=== PATIENT | female | born 1935 | race Caucasian/White ===

== ENCOUNTER 2018-05-16 13:06 | Outpatient (CLI) | payer MEDICARE ==
[~2018-05-16] VITALS: Ht 167.6 cm; Wt 79.4 kg
[2018-05-16] MEDS ORDERED: CRESTOR20 MG ORAL (15:44)
[2018-05-16] MEDS ORDERED: RANITIDINE HCL150 MG ORAL (15:44)
[2018-05-16] MEDS ORDERED: BP med (15:44)
[2018-05-16 15:45] VITALS: BP 157/68
--- NOTE | 2018-05-16 20:00 | Consultation ---
DATE OF CONSULTATION: 05/16/2018 CONSULTING PHYSICIAN: Elie Bender M.D. CHIEF COMPLAINT: Chronic GERD. HISTORY OF PRESENT ILLNESS: She is a very pleasant 83-year-old female. Apparently, she had an endoscopy and colonoscopy three years ago by . She was polyps. She is here mainly because she is having severe heartburn, not responding to Zantac. PAST MEDICAL HISTORY: 1. Hypertension. 2. History of colonic polyps. PAST SURGICAL HISTORY: Right knee surgery. MEDICATIONS: She is on Crestor, Lotrel, and Zantac. FAMILY HISTORY: Sister with breast cancer. SOCIAL HISTORY: The patient denies any tobacco, alcohol, or illicit drug use. ALLERGIES: No known drug allergies. REVIEW OF SYSTEMS: A 10-point review of systems was performed and pertinent positives in HPI. PHYSICAL EXAMINATION: VITAL SIGNS: Temperature is 98.2, blood pressure is 137/63, and pulse is 70. HEENT: Normocephalic and atraumatic. Sclerae are anicteric. NECK: Supple. No obvious evidence of lymphadenopathy. CARDIOVASCULAR: Regular rate and rhythm. Plus S1 and S2. No obvious murmur. LUNGS: Clear to auscultation bilaterally. ABDOMEN: Positive bowel sounds. Soft and nontender. No rebound. No guarding. No peritoneal sign. EXTREMITIES: No cyanosis. No clubbing. No edema. ASSESSMENT AND PLAN: This is an 83-year-old female with GERD without any alarming signs or symptoms. No weight loss. No bleeding. No family history of GI malignancies. Plan to treat with omeprazole as she was taking half an hour before breakfast, lunch, or dinner daily and she was given information about reflux measures. Elevate the head of the bed at bedtime. Empty stomach 3 hours before bedtime. The patient was told to come back in two months in the office. If she is still symptomatic, we will consider doing endoscopy at that time. Elie Bender M.D. DR: CRISTIN JOB#: [id number] CC:
== END 2018-05-16 13:36 | disposition home or self-care (01) ==
LOC: PAN 13:06
DX: K21.9 Gastro-esophageal reflux disease without esophagitis (principal); I10 Essential (primary) hypertension; Z86.010 Personal history of colon polyps; Z80.3 Family history of malignant neoplasm of breast
CPT/HCPCS: 99202

== ENCOUNTER 2018-08-20 13:18 | Outpatient (CLI) | payer MEDICARE ==
[~2018-08-20 13:18] MED LIST: BP med; CRESTOR20 MG ORAL; RANITIDINE HCL150 MG ORAL
[2018-08-20 13:30] VITALS: BP 150/66
--- NOTE | 2018-08-20 13:56 | General Progress Note ---
Assessment/Plan Problem List: (1) GERD (gastroesophageal reflux disease) ICD Codes: K21.9 - Gastro-esophageal reflux disease without esophagitis SNOMED: 146639910 Assessment/Plan: refill ppi patient refused EGD RTC 2 months Subjective ROS Limited/Unobtainable: Yes Allergies: Coded Allergies: No Known Allergies (Unverified , 06/20/14) Objective General Appearance: alert EENT: normal ENT inspection Neck: supple Cardiovascular: normal rate Respiratory/Chest: decreased breath sounds Abdomen: normal bowel sounds, non tender, soft Extremities: non-tender Elie Bender MD Aug 20, 2018 13:56
== END 2018-08-20 15:18 | disposition home or self-care (01) ==
LOC: PAN 13:18
DX: K21.9 Gastro-esophageal reflux disease without esophagitis (principal)
CPT/HCPCS: 99212

== ENCOUNTER 2019-01-29 10:01 | Outpatient (CLI) | payer MEDICARE ==
[~2019-01-29] VITALS: Ht 167.6 cm; Wt 77.6 kg
--- NOTE | 2019-01-29 11:08 | General Progress Note ---
Assessment/Plan Assessment/Plan: Progress Note date and time: 08/20/18 1356 Assessment/Plan Problem List: (1) GERD (gastroesophageal reflux disease) ICD Codes: K21.9 - Gastro-esophageal reflux disease without esophagitis SNOMED: 033419483 Assessment/Plan: refill ppi patient refused EGD add baclofes no alarm S&S RTC 2 months Subjective ROS Limited/Unobtainable: Yes Allergies: Coded Allergies: No Known Allergies (Unverified , 06/20/14) Objective General Appearance: alert EENT: normal ENT inspection Neck: supple Cardiovascular: normal rate Respiratory/Chest: lungs clear Abdomen: normal bowel sounds, non tender, soft Extremities: non-tender Elie Bender MD Jan 29, 2019 11:08
[2019-01-29 12:28] VITALS: BP 117/68
== END 2019-01-29 12:01 | disposition home or self-care (01) ==
LOC: PAN 10:01
DX: K21.9 Gastro-esophageal reflux disease without esophagitis (principal)
CPT/HCPCS: 99212

== ENCOUNTER 2019-09-11 13:11 | Outpatient (CLI) | payer MEDICARE ==
--- NOTE | 2019-09-11 18:30 | Progress Note ---
DATE: 09/11/2019 CHIEF COMPLAINT: Rectal bleeding. SUBJECTIVE: This is a very pleasant 84-year-old female who has history of chronic acid reflux disease, getting treatment at this time. The main complaint is not acid reflux, it was actually rectal bleeding. It happened a few days ago when she was in the bathroom. She had a hard stool and she had a rectal bleeding after that, has not had any bleeding since then. Denies any rectal pain. Denies nausea and vomiting. PHYSICAL EXAMINATION: GENERAL: A well-developed female, in no acute distress. Mildly anxious. HEENT: Normocephalic and atraumatic. Sclerae anicteric. NECK: Supple. No evidence of obvious lymphadenopathy. CARDIOVASCULAR: Regular rate and rhythm. Plus S1 and S2. LUNGS: Clear to auscultation bilaterally. ABDOMEN: Positive bowel sounds. Soft, nontender. No rebound. No guarding. No peritoneal sign. EXTREMITIES: No cyanosis, no clubbing, no edema. ASSESSMENT AND PLAN: This is an 84-year-old female with rectal bleeding, highly suspicious for hemorrhoids given only one episode associated with hard stool and went away. The patient at this time is not very interested in having a colonoscopy done. She said her last colonoscopy was done by . She does not know exactly when but she thinks she it was less than 5 years ago and she was told that she had she had one polyp. Plan is to treat the hemorrhoids with Anusol-HC. The patient to be on Colace 100 mg p.o. b.i.d. The patient to come back if she has recurrent bleeding and we will consider colonoscopy next time. Elie Bender M.D. DR: Teresa JOB#: [id number] CC:
== END 2019-09-11 15:11 | disposition home or self-care (01) ==
LOC: PAN 13:11
DX: K62.5 Hemorrhage of anus and rectum (principal); K21.9 Gastro-esophageal reflux disease without esophagitis
CPT/HCPCS: 99212